=== PATIENT | female | born 1975 | race Caucasian/White ===

== ENCOUNTER → 2023-04-05 | Day surgery (SDC) | payer OTHER ==
[~2023-04-05] VITALS: Ht 170.2 cm; Wt 98.6 kg
[~2023-04-05] MED LIST: CHOL25TA4 PO; CHONDR SULF A SOD/HYALURONATE 1.05 ML KIT IO ONE; EPINEPHrine 1:1,000 [1 MG/ML] VIAL ONE; FentaNYL CITRATE PF 100 MCG/2 ML VIAL IVP ONE; KETOROLAC TROMETHAMINE 0.5% 5 ML OPHTHALMIC SOLUTION ONE; LIDOCAINE/PF 1% 2 ML VIAL ONE; MIDAZOLAM HCL 2 MG/2 ML VIAL IVP ONE; MOXIFLOXACIN HCL 0.5% 3 ML OPHTHALMIC SOLUTION ONE; MULT-1203 PO; OMEP40CA21 PO; PHENYLEPHRINE HCL 2.5% 2 ML OPHTHALMIC SOLUTION ONE; POVIDONE-IODINE 5% 30 ML OPHTHALMIC SOLUTION ONE; RINGERS SOLUTION,LACTATED 500 ML IV ONE; SEMA0.258 SQ; SERT-158 PO; TETRACAINE HCL/PF 0.5% 4 ML OPHTHALMIC SOLUTION ONE; TROPICAMIDE 1% 2 ML OPHTHALMIC SOLUTION ONE; VITA-328 PO; ZINC100T2 PO
[2023-04-05] MEDS: MOXIFLOXACIN HCL 0.5% 3 ML OPHTHALMIC SOLUTION OD SCH ×3 (07:12→07:35)
[2023-04-05] MEDS: TROPICAMIDE 1% 2 ML OPHTHALMIC SOLUTION OD SCH ×3 (07:12→07:35)
[2023-04-05] MEDS: PHENYLEPHRINE HCL 2.5% 2 ML OPHTHALMIC SOLUTION OD SCH ×3 (07:12→07:35)
[2023-04-05] MEDS: KETOROLAC TROMETHAMINE 0.5% 5 ML OPHTHALMIC SOLUTION OD SCH ×3 (07:12→07:35)
== END | disposition still patient (30) ==
LOC: SURGERY 06:10
PROVIDERS: ATTEND Ophthalmology
DX: H25.11 Age-related nuclear cataract, right eye (principal); Z88.2 Allergy status to sulfonamides; Z98.890 Other specified postprocedural states; Z90.710 Acquired absence of both cervix and uterus; Z98.84 Bariatric surgery status; Z79.899 Other long term (current) drug therapy
CPT/HCPCS: 66984; J0171; J3010; J3490; J2250; Q9967; J7120; V2632